=== PATIENT | male | born 1970 | race Caucasian/White ===

== ENCOUNTER 2020-12-25 16:13 | Emergency (ER) | payer OTHER ==
[~2020-12-25] VITALS: Ht 180.3 cm; Wt 128.5 kg
[2020-12-25 17:28] LABS: BASO % 0 % (0-3); EOS # 0.1 x10^3/uL (0.0-0.7); EOS % 1 % (0-3); HEMATOCRIT 47.9 % (39.0-53.0); HEMOGLOBIN 15.8 g/dL (13.0-17.5); LYMPH # 1.9 x10^3/uL (1.0-4.8); LYMPH % 22 % (24-48); MEAN CORPUSCULAR HEMOGLOBIN 32 pg (25-35); MEAN CORPUSCULAR HGB CONC 33 g/dL (31-37); MEAN CORPUSCULAR VOLUME 96 fL (79-100); MONO # 0.6 x10^3/uL (0.0-1.1); MONO % 6 % (0-9); NEUT # 6.1 x10^3uL (1.8-7.7); NEUT % 71 % (31-73); PLATELET COUNT 168 x10^3/uL (140-400); RED BLOOD COUNT 4.97 x10^6/uL (4.30-5.70); RED CELL DISTRIBUTION WIDTH 13.6 % (11.5-14.5); WHITE BLOOD COUNT 8.6 x10^3/uL (4.0-11.0)
[2020-12-25] MEDS ORDERED: KETOROLAC 60 MG/2 ML VIAL. IM ONE (17:30)
[2020-12-25 17:48] LABS: CALCIUM 9.1 mg/dL (8.5-10.1); GFR 78.5; POTASSIUM 3.8 mmol/L (3.5-5.1)
[2020-12-25 17:53] LABS: ALBUMIN/GLOBULIN RATIO 1.1 (1.0-1.7); MAGNESIUM 2.3 mg/dL (1.8-2.4); TOTAL BILIRUBIN 0.7 mg/dL (0.2-1.0); TOTAL PROTEIN 7.7 g/dL (6.4-8.2)
--- NOTE | 2020-12-25 18:41 | RAD ---
Chest PA and lateral: Reason for examination: Chest pain. The heart size is normal. Mediastinum is unremarkable. Lung varma are clear. No acute bony abnormali ties are seen. Impression: No acute cardiopulmonary disease. Electronically signed by: Parvin Murillo MD (12/25/2020 6:38 PM) BLAZE
--- NOTE | 2020-12-25 18:57 | PHYS DOC ---
Past History Past Medical History: Diabetes, High Cholesterol, DE (ARCHIE RICE APRN) Past Surgical History: Cholecystectomy, Other (ARCHIE RICE APRN) Alcohol Use: None Drug Use: None (ARCHIE RICE APRN) Adult General Chief Complaint Chief Complaint: CHEST PAIN HPI HPI Patient is a 50-year-old male who presents emergency department complaining of sternal chest pain he noticed a couple of days ago after playing with his large dogs. Patient states that he believes he may have pulled a muscle as his dogs are very large and play hard is very young. However patient states that he had an DE in 2013 and had a stent placed in his LAD, also had a pulmonary effusion after a gallbladder surgery in 2015. Patient states related to this that he cannot ignore any pains in his chest area and has come in for an evaluation for this pain. Patient reports his pain a 1/10 on a 1-10 pain scale stating that it was a 2/10 at its worst. Patient denies any radiation of this pain, denies any palpitations, chest congestion, nausea, vomiting, diarrhea or constipation. Patient denies any fever or chills, headaches, sore throat, fatigue or muscle or body aches. Patient denies loss of taste or loss of smell, patient denies congestion or runny nose. Patient states that he takes an aspirin daily and not iced over the past 2 days that when he takes his aspirin he gets total pain relief but the pain does return. Patient denies any other physical complaints or physical concerns (ARCHIE RICE APRN) Review of Systems Review of Systems 14 body systems of review of systems have been reviewed. See HPI for pertinent positives and negative responses, otherwise all other systems are negative, nonpertinent or noncontributory. (ARCHIE RICE APRN) Current Medications Current Medications Current Medications Medications (Trade) Dose Ordered Sig/Kari Start Time Stop Time Status Last Admin Dose Admin Ketorolac Tromethamine (Toradol Im) 60 mg 1X ONCE 12/25/20 17:30 12/25/20 17:31 DC 12/25/20 17:30 60 MG (ARCHIE RICE APRN) Allergies Allergies Allergies Coded Allergies Type Severity Reaction Last Updated Verified No Known Drug Allergies 06/04/16 No (ARCHIE RICE APRN) Physical Exam Physical Exam Constitutional: Well developed, well nourished, no acute distress, non-toxic appearance. HENT: Normocephalic, atraumatic, bilateral external ears normal, oropharynx branden st, no oral exudates, nose normal. Eyes: PERRLA, EOMI, conjunctiva normal, no discharge. Neck: Normal range of motion, no tenderness, supple, no stridor. Cardiovascular:Heart rate regular rhythm, no murmur, heart sounds S1-S2. Lungs & Thorax: Bilateral breath sounds clear to auscultation to all lung varma. Reproducible chest pain to lower third of sternum to palpation. Abdomen: Bowel sounds normal, soft, no tenderness, no masses, no pulsatile masses. Skin: Warm, dry, no erythema, no rash. Back: No tenderness, no CVA tenderness. Extremities: No tenderness, no cyanosis, no clubbing, ROM intact, no edema. Neurologic: Alert and oriented X 3, normal motor function, normal sensory function, no focal deficits noted. Psychologic: Affect normal, judgement normal, mood normal. (ARCHIE RICE APRN) Current Patient Data Vital Signs Vital Signs Date Time Temp Pulse Resp B/P (MAP) Pulse Ox O2 Delivery O2 Flow Rate FiO2 12/25/20 17:15 98.6 90 16 120/90 (100) Room Air Lab Results Laboratory Tests Test 12/25/20 16:45 White Blood Count 8.6 x10^3/uL (4.0-11.0) Red Blood Count 4.97 x10^6/uL (4.30-5.70) Hemoglobin 15.8 g/dL (13.0-17.5) Hematocrit 47.9 % (39.0-53.0) Mean Corpuscular Volume 96 fL (79-100) Mean Corpuscular Hemoglobin 32 pg (25-35) Mean Corpuscular Hemoglobin Concent 33 g/dL (31-37) Red Cell Distribution Width 13.6 % (11.5-14.5) Platelet Count 168 x10^3/uL (140-400) Neutrophils (%) (Auto) 71 % (31-73) Lymphocytes (%) (Auto) 22 % (24-48) L Monocytes (%) (Auto) 6 % (0-9) Eosinophils (%) (Auto) 1 % (0-3) Basophils (%) (Auto) 0 % (0-3) Neutrophils # (Auto) 6.1 x10^3uL (1.8-7.7) Lymphocytes # (Auto) 1.9 x10^3/uL (1.0-4.8) Monocytes # (Auto) 0.6 x10^3/uL (0.0-1.1) Eosinophils # (Auto) 0.1 x10^3/uL (0.0-0.7) Basophils # (Auto) 0.0 x10^3/uL (0.0-0.2) Sodium Level 138 mmol/L (136-145) Potassium Level 3.8 mmol/L (3.5-5.1) Chloride Level 103 mmol/L (98-107) Carbon Dioxide Level 26 mmol/L (21-32) Anion Gap 9 (6-14) Blood Urea Nitrogen 17 mg/dL (8-26) Creatinine 1.0 mg/dL (0.7-1.3) Estimated GFR (Cockcroft-Gault) 78.5 BUN/Creatinine Ratio 17 (6-20) Glucose Level 95 mg/dL (70-99) Calcium Level 9.1 mg/dL (8.5-10.1) Magnesium Level 2.3 mg/dL (1.8-2.4) Total Bilirubin 0.7 mg/dL (0.2-1.0) Aspartate Amino Transferase (AST) 19 U/L (15-37) Alanine Aminotransferase (ALT) 35 U/L (16-63) Alkaline Phosphatase 89 U/L (46-116) Troponin I Quantitative < 0.017 ng/mL (0-0.055) Total Protein 7.7 g/dL (6.4-8.2) Albumin 4.0 g/dL (3.4-5.0) Albumin/Globulin Ratio 1.1 (1.0-1.7) (ARCHIE RICE APRN) EKG EKG EKG performed at 1628 by house respiratory therapy staff, shows a normal sinus rhythm with a heart rate of 62 bpm without ectopy RI interval 0.172, QTc interval 0.427, no acute STEMI, no ACS, no acute ischemia appreciated, EKG interpreted by ED attending physician Dr. Plaza (ARCHIE RICE APRN) Radiology/Procedures Radiology/Procedures PATIENT: MILDRED GALAN CACCOUNT: [id number] : 1970 LOCATION: ER AGE: 50 SEX: M EXAM STATUS: REG ER ORD. PHYSICIAN: ARCHIE RICE APRN REASON: CHEST PAIN PROCEDURE: CHEST PA & LATERAL Chest PA and lateral: Reason for examination: Chest pain. The heart size is normal. Mediastinum is unremarkable. Lung varma are clear. No acute bony abnormalities are seen. Impression: No acute cardiopulmonary disease. Electronically signed by: Nyasia Erazo MD (12/25/2020 6:38 PM) [facility] DICTATED AND SIGNED BY: NYASIA ERAZO MD DATE: 12/25/201837 CC: ARCHIE RICE APRN; HOME POON MD ~MTH0 0 (ARCHIE RICE APRN) Heart Score HEART Score for Chest Pain: HEART Score for Chest Pain Response (Comments) Value History Slighlty/Non-Suspicious 0 ECG Normal 0 Age >45 - < 65 1 Risk Factors 1 or 2 Risk Factors 1 Troponin < Normal Limit 0 Total 2 Risk Factors: Risk Factors: DM, Current or recent (<one month) smoker, HTN, HLP, family history of CAD, obesity. Risk Scores: Risk Factors: DM, Current or recent (<one month) smoker, HTN, HLP, family history of CAD, obesity. (ARCHIE RICE APRN) Course & Med Decision Making Course & Med Decision Making Pertinent Labs and Imaging studies reviewed. (See chart for details) 51-year-old female, vital signs reviewed, presents emergency department complai nt of sternal chest pain. Patient's physical exam consistent with chest wall pain versus musculoskeletal pain, related to patient's history of DE a cardiopulmonary work-up was initiated in the ED. Patient's chest x-ray was negative for acute pulmonary process, EKG was negative for concerning DE, STEMI, ACS, or acute ischemia. Patient's serum labs negative for any concerning cardiopulmonary process. Discussed findings with patient, patient states that he got relief from IM Toradol given during ED stay. Patient gave verbal understanding of discharge home instructions, follow-up with primary care for ongoing aches and pains, return to the emergency department for worsening symptoms or other concerns, was discharged home. (ARCHIE RICE APRN) Dragon Disclaimer Dragon Disclaimer This electronic medical record was generated, in whole or in part, using a voice recognition dictation system. (ARCHIE RICE APRN) Departure Departure: Impression: Primary Impression: Chest wall pain Disposition: 01 DC HOME SELF CARE/HOMELESS Condition: GOOD Referrals: HOME POON MD (PCP) Patient Instructions: Chest Wall Pain Additional Instructions: Please use [id number] Naprosyn or ibuprofen for ongoing aches and pains, follow-up with your primary care physician for ongoing aches and pains and further evaluation of your sternal chest pain. Please return to the emergency department for worsening symptoms or other concerns. EMERGENCY DEPARTMENT GENERAL DISCHARGE INSTRUCTIONS Thank you for coming to [facility] (ED) today and trusting us with you care. We trust that you had a positivie experience in our Emergency Department. If you wish to speak to the department management, you may call the director at [phone]. YOUR FOLLOW UP INSTRUCTIONS ARE FOLLOWS: 1. Do you have a private Doctor? If you do not have a private doctor, please ask for a resource list of physicians or clinics that may be able to assist you with follow up care. 2. The Emergency Physician has interpreted your x-rays. The X-Ray specialist will also review them. If there is a change in the findings, you will be notified in 48 hours when at all possible. 3. A lab test or culture has been done, your results will be reviewed and you will be notified if you need a change in treatment. ADDITIONAL INSTRUCTIONS AND INFORMATION: 1. Your care today has been supervised by a physician who is specially trained in emergency care. Many problems require more than one evaluation for a complete diagnosis and treatment. We recommend that you schedule your follow up appointment as recommended to ensure complete treatment of you illness or injury. If you are unable to obtain follow up care and continue to have a problem, or if your condition worsens, we recommend that you return to the ED. 2. We are not able to safely determine your condition over the phone nor are we able to give sound medical advice over the phone. For these safety reasons, if you call for medical advice we will ask you to come to the ED for further evaluation. 3. If you have any questions regarding these discharge instructions please call the ED at [phone]. SAFETY INFORMATION: In the interest of safety, wellness, and injury prevention; we encourage you to wear your sealbelt, if you smoke; quite smoking, and we encourage family to use a protective helmet for bicycling and other sporting events that present an increased risk for head injury. IF YOUR SYMPTOMS WORSEN OR NEW SYMPTOMS DEVELOP, OR YOU HAVE CONCERNS ABOUT YOUR CONDITION; OR IF YOUR CONDITION WORSENS WHILE YOU ARE WAITING FOR YOUR FOLLOW UP APPOINTMENT; EITHER CONTACT YOUR PRIMARY CARE DOCTOR, THE PHYSICIAN WHOSE NAME AND NUMBER YOU WERE GIVEN, OR RETURN TO THE ED IMMEDIATELY. Attending Signature Attending Signature I have participated in the care of this patient and I have reviewed and agree with all pertinent clinical information above including history, exam, and recommendations. (DIXON FARIA MD) ARCHIE RIEC APRN Dec 25, 2020 18:57 DIXON FARIA MD Dec 27, 2020 05:52
[2020-12-25 20:21] VITALS: BP 120/90
--- NOTE | 2020-12-26 06:42 | EKG ---
[facility] [address] [place] [address] Test Date: 2020-12-25 Test Time: 16:28:07 Pat Name: MILDRED GALAN Department: Room: Gender: Ticket Attendant: [facility] : 1970 Requested By: ARCHIE RICE Order Number: [id number] Reading MD: Mohinder Chan Measurements Intervals [place] Rate: 62 P: 33 CT: 172 QRS: 38 QRSD: 88 T: 38 QT: 418 QTc: 427 Interpretive Statements SINUS RHYTHM NORMAL ECG RI6.02 No previous ECG available for comparison Electronically Signed On 12-26-2020 9:24:15 GROUNDSMAN by Mohinder Chan
[2020-12-26] MEDS ORDERED: ASPI325T8 PO (08:21)
== END 2020-12-25 19:00 | disposition home or self-care (01) ==
LOC: ER 16:13
DX: R07.2 Precordial pain (principal); E11.9 Type 2 diabetes mellitus without complications; I25.2 Old myocardial infarction; E78.00 Pure hypercholesterolemia, unspecified; Z90.49 Acquired absence of other specified parts of digestive tract
CPT/HCPCS: 36415; 71046; 80053; 83735; 84484; 85025; 93005; 96372; 99285; J1885